=== PATIENT | female | born 1990 | race Two or more races ===

== ENCOUNTER 2016-10-31 15:00 | Emergency (ER) | payer SELFPAY ==
[~2016-10-31] VITALS: Ht 162.6 cm; Wt 86.2 kg
[2016-10-31 15:44] VITALS: BP 112/80
[2016-10-31] MEDS ORDERED: cefTRIAXone SOD 1,000 MG VL IM ONE (16:00)
== END 2016-10-31 16:31 | disposition home or self-care (01) ==
LOC: ER 15:18
DX: J20.9 Acute bronchitis, unspecified (principal); J03.90 Acute tonsillitis, unspecified; J45.909 Unspecified asthma, uncomplicated; Z88.8 Allergy status to other drugs, medicaments and biological substances
CPT/HCPCS: 96372; 99283; J0696